=== PATIENT | male | born 1990 | race Caucasian/White ===

== ENCOUNTER 2018-03-30 15:41 | Emergency (ER) | payer SELFPAY ==
[2018-03-30 16:29] VITALS: BP 114/67
== END 2018-03-30 19:00 | disposition left against medical advice (07) ==
LOC: ED 15:41
DX: M79.641 Pain in right hand (principal); Z53.21 Procedure and treatment not carried out due to patient leaving prior to being seen by health care provider

== ENCOUNTER 2018-04-12 12:49 | Emergency (ER) | payer SELFPAY ==
--- NOTE | 2018-04-12 19:43 | Emergency Department Report ---
ED Rash HPI - HPI Chief Complaint: Skin Rash Stated Complaint: RASH ON THIGH/PAIN Time Seen by Provider: 04/12/18 19:02 Duration: 3 Days Location: Lower Extremities Suspected Cause: Unknown Rash Symptoms: Yes Itching (left inner thigh), No Facial Swelling, No Breathing Difficulties, No Choking Sensation, No Wheezing/Dyspnea, No Peeling, No Blistering, No Fever, No Lightheaded, No Malaise, No Myalgias Other History: Patient here complaining of rash 3 days to left inner thigh. He reports itching without any pain. 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 Denies any insect bite or any respiratory symptoms. He had reported that he has burning sensation to triage area that 6 out of 10 to right thigh at rest site but denies this to me he said it is more itchy. No medication taken. ED Review of Systems ROS: Stated complaint: RASH ON THIGH/PAIN Other details as noted in HPI Constitutional: denies: chills, fever Eyes: denies: eye pain, eye discharge ENT: denies: ear pain, throat pain, congestion Respiratory: denies: cough, shortness of breath, SOB with exertion, SOB at rest , stridor, wheezing Cardiovascular: denies: chest pain, palpitations, edema, syncope Gastrointestinal: denies: nausea, vomiting, diarrhea Musculoskeletal: denies: back pain, joint swelling, arthralgia, myalgia Skin: rash, pruritus. denies: lesions Neurological: denies: headache, weakness Psychiatric: denies: anxiety, depression Hematological/Lymphatic: denies: easy bleeding, easy bruising ED Past Medical Hx - Past Medical History Previous Medical History?: No - Surgical History Past Surgical History?: No Additional Surgical History: double hernia repair when 2yrs - Family History Family history: hypertension - Social History Smoking Status: Current Every Day Smoker Substance Use Type: Marijuana - Medications Home Medications: Home Medications Medication Instructions Recorded Confirmed Last Taken Type Econazole 1% [Spectazole] 1 applicatio TP BID 7 Days #1 tube 04/12/18 Unknown Rx Fluconazole [Diflucan TAB] 150 mg PO QDAY 2 Days #2 tablet 04/12/18 Unknown Rx Rash Exam - Exam General: Vital signs noted. No distress. Alert and acting appropriately. This is a 28-year-old male well-nourished well-developed in no acute distress. HEENT: No Periorbital Edema, No Conjuctival Injection, No Chemosis, No Perioral Edema, No Tongue Edema, No Uvular Edema, No Compromised Airway, No Drooling Lungs: Yes Good Air Exchange, No Wheezes, No Ronchi, No Stridor, No Cough, No Labored Respirations, No Retractions, No Use of Accessory Muscles, No Other Abnormal Lung Sounds Heart: Yes Regular (regular and bradycardic. Asymptomatic), No Murmur Front/Back of Body, Lg (Color): 1 - Patient with well-demarcated area approximate 4 cm with clearing to the Center and some scaling to the Center to left medial inner thigh. This appears fungal in nature. Skin: Yes Erythema (well-demarcated area of erythema with clear into the center to left medial thigh, inner), Yes Other (patient with tinea type rash to left medial inner thigh), No Urticarial Rash, No Maculopapular Rash, No Morbilliform rash, No Bulla(e), No Excoriations, No Weeping, No Tenderness, No Edema, No Encrustations Other: Positive: Abdomen Normal, Neurologic Normal, Musculoskeletal Normal ED Course Vital Signs 04/12/18 13:38 Temperature 98.5 F Pulse Rate 45 L Respiratory 16 Rate Blood Pressure 121/62 O2 Sat by Pulse 100 Oximetry Vital Signs 04/12/18 04/12/18 13:38 20:19 Temperature 98.5 F 98.1 F Pulse Rate 45 L 49 L Respiratory 16 14 Rate Blood Pressure 121/62 113/58 O2 Sat by Pulse 100 100 Oximetry Vital Signs 04/12/18 04/12/18 04/12/18 13:38 20:19 20:46 Temperature 98.5 F 98.1 F Pulse Rate 45 L 49 L 56 L Respiratory 16 14 Rate Blood Pressure 121/62 113/58 O2 Sat by Pulse 100 100 Oximetry - Reevaluation(s) Reevaluation #1: 04/12/18 20:39 Patient stable throughout ED stay ED Medical Decision Making - Medical Decision Making 28-year-old male here for complaints of rash and itch and to her left inner thigh. Assessment/plan 1: Tinea corporis-patient will be placed on econazole and Diflucan and to follow -up with railway head tender in 3-5 days. I discussed the patient is diagnosis and treatment plan along with medication that he will be placed on any voice understanding. Patient discharged from the emergency room in stable condition. Vital signs are stable he is afebrile. He knows he needs to follow up with railway head tender and primary care physician in 3- 5 days. Critical care attestation.: If time is entered above; I have spent that time in minutes in the direct care of this critically ill patient, excluding procedure time. ED Disposition Clinical Impression: Tinea corporis Disposition: DC-01 TO HOME OR SELFCARE Is pt being admited?: No Does the pt Need Aspirin: No Condition: Stable Instructions: Tinea Corporis (ED) Additional Instructions: Please follow up with primary care and railway head tender in 3-5 days. Use medication as prescribed If his symptoms worsens, return to the emergency room otherwise follow-up as discussed Affected area clean and dry Prescriptions: Econazole 1% [Spectazole] 1 applicatio TP BID 7 Days #1 tube Fluconazole [Diflucan TAB] 150 mg PO QDAY 2 Days #2 tablet Referrals: PRIMARY CAREMD [Primary Care Provider] - 3-5 Days [facility] [Outside] - 3-5 Days MICHELE KAMARA MD [Staff Physician] - 3-5 Days Forms: Work/School Release Form(ED)
[2018-04-12 20:23] VITALS: BP 113/58
== END 2018-04-12 20:55 | disposition home or self-care (01) ==
LOC: ED 12:49
DX: B35.4 Tinea corporis (principal); F17.200 Nicotine dependence, unspecified, uncomplicated; F12.10 Cannabis abuse, uncomplicated
CPT/HCPCS: 99282

== ENCOUNTER 2018-09-18 11:08 | Emergency (ER) | payer SELFPAY ==
[2018-09-18 11:12] VITALS: BP 123/62
--- NOTE | 2018-09-18 11:35 | Emergency Department Report ---
Abscess Boil HPI - HPI Chief Complaint: Skin/Abscess/Foreign Body Stated Complaint: RT FINGER SWOLLEN Time Seen by Provider: 09/18/18 11:32 Duration: 3 Days Location: Upper Extremity Severity: Mild History: Yes Pain, Yes Foreign Body (per pt), No Fever, No Purulent Drainage, No Numbness, No Previous History, No Insect Bite HPI: 28 yo male who comes to er complaining of a splinter in his finger for a few days.He states he thought he got it out but the finger is swollen and painful. Home Medications: Previous Rx's Medication Instructions Recorded Last Taken Type Naproxen [Naprosyn] 500 mg PO BID PRN #20 tablet 09/18/18 Unknown Rx RX: Amoxicillin 500 mg PO BID #20 capsule 09/18/18 Unknown Rx Allergies/Adverse Reactions: Allergies Allergy/AdvReac Type Severity Reaction Status Date / Time No Known Allergies Allergy Verified 09/18/18 11:09 ED Review of Systems ROS: Stated complaint: RT FINGER SWOLLEN Other details as noted in HPI Comment: All other systems reviewed and negative Constitutional: denies: chills Eyes: denies: as per HPI ENT: denies: ear pain Respiratory: denies: cough Cardiovascular: denies: dyspnea on exertion Endocrine: denies: see HPI Gastrointestinal: denies: nausea Genitourinary: denies: urgency Musculoskeletal: as per HPI Skin: as per HPI. denies: rash Neurological: denies: as per HPI, weakness Hematological/Lymphatic: denies: easy bleeding ED Past Medical Hx - Past Medical History Previous Medical History?: No - Surgical History Past Surgical History?: No Additional Surgical History: double hernia repair when 2yrs - Social History Smoking Status: Current Every Day Smoker Substance Use Type: Marijuana - Medications Home Medications: Home Medications Medication Instructions Recorded Confirmed Last Taken Type Naproxen [Naprosyn] 500 mg PO BID PRN #20 tablet 09/18/18 Unknown Rx RX: Amoxicillin 500 mg PO BID #20 capsule 09/18/18 Unknown Rx ED Abscess Boil Physical Exam - Exam General: Vital signs noted. No distress. Alert and acting appropriately. Exam: Yes Tenderness, Yes Normal Neurologic Exam, Yes Normal Circulation, No Fluctuance, No Surrounding Cellulites/Erythema, No Lymphangitis, No Crepitation, No Heart Murmur Exam: Pt has a puncture wound to tip of r index finger. no fb seen or felt on exam. rapid cap refill. minimal swelling with no drainage. full rom. medial/ulnar and radial nerves intact. ED Course Vital Signs 09/18/18 11:12 Temperature 97.9 F Pulse Rate 58 L Respiratory 16 Rate Blood Pressure 123/62 O2 Sat by Pulse 100 Oximetry Critical care attestation.: If time is entered above; I have spent that time in minutes in the direct care of this critically ill patient, excluding procedure time. ED Medical Decision Making - Radiology Data Radiology results: report reviewed, image reviewed - Medical Decision Making xray noted no observed fb or tracking from fb. I discussed with pt risk of opening his finger to look for a splinter that we have no objective assessment findings that is in the finger. tdap utd discussed with pt conservative treatment with epsom salt soaks and antibiotics. if the swelling and pain persists he is to see derm for opening and exploration of the finger. he concurs ED Disposition Clinical Impression: Foreign body finger Disposition: DC-01 TO HOME OR SELFCARE Is pt being admited?: No Does the pt Need Aspirin: No Condition: Stable Instructions: Soft Tissue Foreign Body (ED) Prescriptions: RX: Amoxicillin 500 mg PO BID #20 capsule Naproxen [Naprosyn] 500 mg PO BID PRN #20 tablet PRN Reason: Pain Referrals: LORRAINE PEARSON MD [Primary Care Provider] - 3-5 Days RENETTA ENAMORADO MD [Referring] - 3-5 Days [facility] [Outside] - 3-5 Days Time of Disposition: 12:12
[2018-09-18] MEDS ORDERED: IBUPROFEN PO ONE (12:09)
[2018-09-18] MEDS ORDERED: TRIMOX PO ONE (12:09)
--- NOTE | 2018-09-18 12:16 | XRay Report ---
RIGHT FINGERS, 3 VIEWS History: Pain, question foreign body. Findings: No radiopaque foreign body is identified on x-ray. Right fingers are intact. Normal joint spaces. Impression: No abnormality identified.
== END 2018-09-18 12:40 | disposition home or self-care (01) ==
LOC: ED 11:08
DX: S61.230A Puncture wound without foreign body of right index finger without damage to nail, initial encounter (principal); F17.200 Nicotine dependence, unspecified, uncomplicated; X58.XXXA Exposure to other specified factors, initial encounter; Y93.89 Activity, other specified; Y92.89 Other specified places as the place of occurrence of the external cause; Y99.8 Other external cause status

== ENCOUNTER 2020-05-25 10:28 | Emergency (ER) | payer MEDICAID, OTHER ==
[2020-05-25 11:01] VITALS: BP 129/63
--- NOTE | 2020-05-25 11:38 | Event Note ---
ED Screening Note ED Screening Note: Patient is a 30-year-old male presents emergency room complaints of hematuria that began this morning He states he has been having dysuria for 2 weeks He states he has penile discharge He states he has mild lower abdominal discomfort Patient states he had unprotected intercourse He denies any pain or swelling in the testicles No past medical history No allergies to medications This initial assessment/diagnostic orders/clinical plan/treatment(s) is/are subject to change based on patients health status, clinical progression and re- assessment by fellow clinical providers in the ED. Further treatment and workup at subsequent clinical providers discretion. Patient/guardian urged not to elope from the ED as their condition may be serious if not clinically assessed and managed. Initial orders include: UA, G/C
--- NOTE | 2020-05-25 12:04 | Emergency Department Report ---
ED Male HPI - General Chief complaint: Urogenital-Male Stated complaint: BLOOD IN URINE Time Seen by Provider: 05/25/20 11:37 Source: patient Mode of arrival: Ambulatory Limitations: No Limitations - History of Present Illness Initial comments: This is a 30-year-old male nontoxic, well nourished in appearance, no acute signs of distress presents to the ED with c/o of penile discharge and dysuria. Patient denies any testicular pain or swelling. Patient denies any penile ulcers or lesions. Patient denies any nausea, vomiting, chest pain, shortness of breathe, fever, chills, headache, back pain, numbness, tingling, stiff neck. Patient denies any urinary symptoms. Patient denies any allergies or PMH. MD Complaint: penile discharge, dysuria -: days(s) Location: penis Radiation: none Severity: mild Severity scale (0 -10): 3 Quality: burning Consistency: constant Improves with: none Worsens with: urination discharge, dysuria. denies: swelling, mass, rash, urinary retention, blood in urine, fever, nausea/vomiting, incontinence - Related Data Previous Rx's Medication Instructions Recorded Last Taken Type Amoxicillin 500 mg PO BID #20 capsule 09/18/18 Unknown Rx Naproxen [Naprosyn] 500 mg PO BID PRN #20 tablet 09/18/18 Unknown Rx Allergies Allergy/AdvReac Type Severity Reaction Status Date / Time No Known Allergies Allergy Verified 09/18/18 11:09 ED Review of Systems ROS: Stated complaint: BLOOD IN URINE Other details as noted in HPI Constitutional: denies: chills, fever Eyes: denies: eye pain, eye discharge, vision change ENT: denies: ear pain, throat pain Respiratory: denies: cough, shortness of breath, wheezing Cardiovascular: denies: chest pain, palpitations Endocrine: no symptoms reported Gastrointestinal: denies: abdominal pain, nausea, diarrhea Genitourinary: dysuria, discharge. denies: urgency, frequency, hematuria, testicular pain, testicular mass Musculoskeletal: denies: back pain, joint swelling, arthralgia Skin: denies: rash, lesions Neurological: denies: headache, weakness, paresthesias Psychiatric: denies: anxiety, depression Hematological/Lymphatic: denies: easy bleeding, easy bruising ED Past Medical Hx - Past Medical History Previous Medical History?: No - Surgical History Past Surgical History?: Yes Additional Surgical History: double hernia repair when 2yrs - Social History Smoking Status: Current Every Day Smoker Substance Use Type: None - Medications Home Medications: Home Medications Medication Instructions Recorded Confirmed Last Taken Type Amoxicillin 500 mg PO BID #20 capsule 09/18/18 Unknown Rx Naproxen [Naprosyn] 500 mg PO BID PRN #20 tablet 09/18/18 Unknown Rx ED Physical Exam - General Limitations: No Limitations General appearance: alert, in no apparent distress - Head Head exam: Present: atraumatic, normocephalic - Eye Eye exam: Present: normal appearance - Neck Neck exam: Present: normal inspection, full ROM - Respiratory Respiratory exam: Absent: respiratory distress - Cardiovascular Cardiovascular Exam: Present: regular rate - GI/Abdominal GI/Abdominal exam: Present: soft, normal bowel sounds. Absent: distended, tenderness, guarding, rebound, rigid, diminished bowel sounds - Extremities Exam Extremities exam: Present: full ROM - Back Exam Back exam: Present: normal inspection, full ROM. Absent: tenderness, CVA tenderness (R), CVA tenderness (L), muscle spasm, paraspinal tenderness, vertebral tenderness, rash noted - Neurological Exam Neurological exam: Present: alert, oriented X3, normal gait - Psychiatric Psychiatric exam: Present: normal affect, normal mood - Skin Skin exam: Present: warm, dry, intact, normal color. Absent: rash ED Course Vital Signs 05/25/20 10:58 Temperature 98.2 F Pulse Rate 74 Respiratory 16 Rate Blood Pressure 129/63 O2 Sat by Pulse 97 Oximetry - Reevaluation(s) Reevaluation #1: 05/25/20 12:03 Patient is speaking in full sentences with no signs of distress noted. ED Medical Decision Making - Lab Data Lab Results 05/25/20 Range/Units 11:54 Urine Color Yellow (Yellow) Urine Turbidity Cloudy (Clear) Urine pH 6.0 (5.0-7.0) Ur Specific [place] 1.025 (1.003-1.030) Urine Protein 100 mg/dl (Negative) mg/dL Urine Glucose (UA) Neg (Negative) mg/dL Urine Ketones Neg (Negative) mg/dL Urine Blood Lg (Negative) Urine Nitrite Neg (Negative) Urine Bilirubin Neg (Negative) Urine Urobilinogen < 2.0 (<2.0) mg/dL Ur Leukocyte Esterase Lg (Negative) Urine WBC (Auto) < 1.0 (0.0-6.0) /HPF Urine RBC (Auto) > 182.0 (0.0-6.0) /HPF Urine Bacteria (Auto) 2+ (Negative) /HPF Urine Mucus Few /HPF - Medical Decision Making This is a 30-year-old female that presents with possible STD. Patient is stable was examined by me. There is no abdominal tenderness. No pelvic pain. UA obtained. Wet prep obtained. Gonorrhea chlamydia swab pending. Patient was instructed to return in 3-5 days for GC results. Patient wanted empirical treatment so patient received 250 mg Rocephin and 1 g of azithromycin by mouth. Patient was instructed to Follow-up with a primary care doctor in 3-5 days or if symptoms worsen and continue return to emergency room as soon as possible. At time of discharge, the patient does not seem toxic or ill in appearance. No acute signs of distress noted. Patient agrees to discharge treatment plan of care. No further questions noted by the patient. Critical care attestation.: If time is entered above; I have spent that time in minutes in the direct care of this critically ill patient, excluding procedure time. ED Disposition Clinical Impression: Possible exposure to STD Disposition: DC-01 TO HOME OR SELFCARE Is pt being admited?: No Does the pt Need Aspirin: No Condition: Stable Instructions: Safe Sex (ED) Additional Instructions: Follow-up with a primary care doctor in 3-5 days or if symptoms worsen and continue return to emergency room as soon as possible. Referrals: PRIMARY MD PAZ [Referring] - 3-5 Days SUNDAY HAND MD [Staff Physician] - 3-5 Days
[2020-05-25 12:30] LABS: Bacteria,Urine 2+ /HPF (Negative); Bilirubin,Urine NEG (Negative); Blood,Urine LG (Negative); Color,Urine Yellow (Yellow); Mucus,Urine FEW /HPF; Urobilinogen,Urine < 2.0 mg/dL (<2.0)
[2020-05-25 12:33] LABS: RBC,Urine > 182.0 /HPF (0.0-6.0); WBC,Urine < 1.0 /HPF (0.0-6.0)
[2020-05-25] MEDS ORDERED: AZITHROMYCIN 250 MG TAB PO ONE (13:02)
[2020-05-25] MEDS ORDERED: LIDOCAINE-MPF (1%) 10 MG/1 ML VIAL 5 ML INFILTRATI ONE (13:02)
== END 2020-05-25 14:59 | disposition home or self-care (01) ==
LOC: ED 10:28
DX: R30.0 Dysuria (principal); R36.9 Urethral discharge, unspecified; Z20.2 Contact with and (suspected) exposure to infections with a predominantly sexual mode of transmission; F17.200 Nicotine dependence, unspecified, uncomplicated; Z98.890 Other specified postprocedural states; Z79.2 Long term (current) use of antibiotics; Z79.899 Other long term (current) drug therapy
CPT/HCPCS: 81001; 87591; 96372; 99283; J0696

== ENCOUNTER 2020-08-11 16:28 | Emergency (ER) | payer OTHER ==
[2020-08-11 16:50] VITALS: BP 138/76
--- NOTE | 2020-08-11 16:55 | Emergency Department Report ---
ED General Adult HPI - General Chief complaint: Urogenital-Male Stated complaint: GROIN PAIN Source: patient Mode of arrival: Ambulatory Limitations: No Limitations - History of Present Illness Severity scale (0 -10): 0 - Related Data Previous Rx's Medication Instructions Recorded Last Taken Type Amoxicillin 500 mg PO BID #20 capsule 09/18/18 Unknown Rx Naproxen [Naprosyn] 500 mg PO BID PRN #20 tablet 09/18/18 Unknown Rx Allergies Allergy/AdvReac Type Severity Reaction Status Date / Time No Known Allergies Allergy Verified 09/18/18 11:09 ED Review of Systems ROS: Stated complaint: GROIN PAIN Other details as noted in HPI ED Past Medical Hx - Past Medical History Previous Medical History?: No - Surgical History Past Surgical History?: Yes Additional Surgical History: double hernia repair when 2yrs - Social History Smoking Status: Current Every Day Smoker Substance Use Type: None - Medications Home Medications: Home Medications Medication Instructions Recorded Confirmed Last Taken Type Amoxicillin 500 mg PO BID #20 capsule 09/18/18 Unknown Rx Naproxen [Naprosyn] 500 mg PO BID PRN #20 tablet 09/18/18 Unknown Rx ED Physical Exam - General Limitations: No Limitations ED Course Vital Signs 08/11/20 16:45 Temperature 98.7 F Pulse Rate 58 L Respiratory 18 Rate Blood Pressure 138/76 [Right] O2 Sat by Pulse 98 Oximetry Critical care attestation.: If time is entered above; I have spent that time in minutes in the direct care of this critically ill patient, excluding procedure time. ED Disposition Condition: Stable
--- NOTE | 2020-08-11 17:33 | Event Note ---
ED Screening Note Date of service: 08/11/20 Time: 17:32 ED Screening Note: Patient complains of bloody urine x2 weeks States tested positive for gonorrhea and chlamydia No other prior medical history per patient He does admit to penile discharge and dysuria This initial assessment/diagnostic orders/clinical plan/treatment(s) is/are subject to change based on patients health status, clinical progression and re- assessment by fellow clinical providers in the ED. Further treatment and workup at subsequent clinical providers discretion. Patient/guardian urged not to elope from the ED as their condition may be serious if not clinically assessed and managed. Initial orders include: Labs
[2020-08-11] MEDS ORDERED: LIDOCAINE-MPF (1%) 10 MG/1 ML VIAL 5 ML INFILTRATI ONE (17:37)
--- NOTE | 2020-08-11 17:40 | Emergency Department Report ---
ED General Adult HPI - General Chief complaint: Urogenital-Male Stated complaint: GROIN PAIN Time Seen by Provider: 08/11/20 16:55 Source: patient Mode of arrival: Ambulatory Limitations: No Limitations - History of Present Illness Severity scale (0 -10): 0 - Related Data Previous Rx's Medication Instructions Recorded Last Taken Type Amoxicillin 500 mg PO BID #20 capsule 09/18/18 Unknown Rx Naproxen [Naprosyn] 500 mg PO BID PRN #20 tablet 09/18/18 Unknown Rx Doxycycline Monohydrate 100 mg PO BID 10 Days #20 capsule 08/11/20 Unknown Rx Allergies Allergy/AdvReac Type Severity Reaction Status Date / Time No Known Allergies Allergy Verified 09/18/18 11:09 ED Review of Systems ROS: Stated complaint: GROIN PAIN Other details as noted in HPI ED Past Medical Hx - Past Medical History Previous Medical History?: No - Surgical History Past Surgical History?: Yes Additional Surgical History: double hernia repair when 2yrs - Social History Smoking Status: Current Every Day Smoker Substance Use Type: None - Medications Home Medications: Home Medications Medication Instructions Recorded Confirmed Last Taken Type Amoxicillin 500 mg PO BID #20 capsule 09/18/18 Unknown Rx Naproxen [Naprosyn] 500 mg PO BID PRN #20 tablet 09/18/18 Unknown Rx Doxycycline Monohydrate 100 mg PO BID 10 Days #20 capsule 08/11/20 Unknown Rx ED Physical Exam - General Limitations: No Limitations ED Course Vital Signs 08/11/20 16:45 Temperature 98.7 F Pulse Rate 58 L Respiratory 18 Rate Blood Pressure 138/76 [Right] O2 Sat by Pulse 98 Oximetry Critical care attestation.: If time is entered above; I have spent that time in minutes in the direct care of this critically ill patient, excluding procedure time. ED Disposition Clinical Impression: STD exposure Hematuria Qualifiers: Hematuria type: other microscopic Qualified Code(s): R31.29 - Other microscopic hematuria; R31.2 - Other microscopic hematuria Disposition: - TO HOME OR SELFCARE Is pt being admited?: No Condition: Stable Instructions: Gonorrhea, Chlamydia, Male, Hematuria, Adult Prescriptions: Doxycycline Monohydrate 100 mg PO BID 10 Days #20 capsule Referrals: [facility] [Provider Group] - 3-5 Days
[2020-08-11 18:20] LABS: Bilirubin,Urine NEG (Negative); Blood,Urine SM (Negative); Color,Urine Amber (Yellow); Mucus,Urine 3+ /HPF
[2020-08-11 18:22] LABS: WBC,Urine > 182.0 /HPF (0.0-6.0)
== END 2020-08-11 18:43 | disposition home or self-care (01) ==
LOC: ED 16:28
DX: R36.9 Urethral discharge, unspecified (principal); R30.0 Dysuria; Z53.21 Procedure and treatment not carried out due to patient leaving prior to being seen by health care provider
CPT/HCPCS: 81001; 96372; J0696